=== PATIENT | male | born 1970 | race Caucasian/White ===

== ENCOUNTER 2024-11-17 11:29 | Emergency (ER) | payer SELFPAY ==
[~2024-11-17] VITALS: Ht 175.3 cm; Wt 72.6 kg
[2024-11-17 11:33] VITALS: O2SAT 100
[2024-11-17 12:31] LABS: BASOPHILS % 0.4 % (0.0-2.0); CHLORIDE 105 mEq/L (98-107); EOSINOPHILS % 0.5 % (0.0-5.0); HEMATOCRIT. 38.4 % (42.0-52.0); HEMOGLOBIN. 11.8 g/dL (14.0-18.0); LYMPHOCYTES % 16.3 % (20.0-50.0); MEAN CORPUSCULAR HEMOGLOBIN 21.2 pg (28.0-32.0); MEAN CORPUSCULAR HGB CONC 30.7 g/dL (31.0-37.0); MEAN CORPUSCULAR VOLUME 69.1 fL (80.0-94.0); MONOCYTES % 6.4 % (2.0-8.0); NEUTROPHILS % 76.4 % (40.0-76.0); PLATELET 271 x1000/uL (130-400); POTASSIUM 4.1 mEq/L (3.5-5.1); RED BLOOD CELL COUNT 5.56 mill/uL (4.7-6.1); RED CELL DISTRIBUTION WIDTH 15.2 % (11.6-14.6); SODIUM 140 mEq/L (136-145); WHITE BLOOD COUNT 9.8 x1000/uL (4.5-11.0)
[2024-11-17 12:32] LABS: CALCIUM 9.8 mg/dL (8.7-10.4); CARBON DIOXIDE 26 mEq/L (21-32)
[2024-11-17 12:37] LABS: GLUCOSE 113 mg/dL (70-105); UREA NITROGEN BLOOD 17 mg/dL (9-23)
[2024-11-17 12:39] LABS: ALANINE AMINOTRANSFERASE 18 IU/L (10-49); ALBUMIN 4.3 g/dL (3.2-4.8); ASPARTATE AMINOTRANSFERASE 17 IU/L (<34); BILIRUBIN DIRECT 0.2 mg/dL (<=3.0)
[2024-11-17 12:40] LABS: BILIRUBIN TOTAL 0.7 mg/dL (0.1-1.0); PROTEIN TOTAL 6.8 g/dL (6.0-8.3)
[2024-11-17 12:58] LABS: ADD RBC MORPHOLOGY YES; DIFFERENTIAL COMMENT 1
[2024-11-17 13:01] LABS: TROPONIN I HIGH SENSITIVITY < 4 ng/L (3.0-53)
[2024-11-17] MEDS: MORPHINE SULFATE 4 MG/ML INJ (FOR IV/IM USE) IV STA (13:01)
[2024-11-17] MEDS: ONDANSETRON HCL 4MG/2ML INJ IV STA (13:02)
[2024-11-17] MEDS: KETOROLAC 30MG/ML VIAL IV STA (13:02)
[2024-11-17] MEDS: SODIUM CHLORIDE 0.9% 1,000 ML IV ONE (13:02)
[2024-11-17] MEDS: OXYCODONE HCL/ACETAMINOPHEN 5/325MG TABLET PO STA (15:13)
[2024-11-17] MEDS: ONDANSETRON 4MG ODT PO STA (15:13)
[2024-11-17] MEDS ORDERED: OXYC-100 MT (15:28)
[2024-11-17] MEDS ORDERED: ONDA-239 PO (15:29)
[2024-11-17] MEDS ORDERED: KETO10TA2 MT (15:29)
[2024-11-17] MEDS ORDERED: OMEP40CA20 MT (15:29)
[2024-11-17] MEDS ORDERED: TAMS-11 MT (15:29)
[2024-11-17 15:43] VITALS: BP 118/70; PULSE 86; RESP 18; TEMP 36.8; O2SAT 100
[2024-11-17 17:07] LABS: MICROCYTOSIS 2+; PLATELET ESTIMATE NORMAL
== END 2024-11-17 15:44 | disposition home or self-care (01) ==
LOC: EDBD 11:37 → ER 11:37
DX: N20.2 Calculus of kidney with calculus of ureter (principal); Z87.442 Personal history of urinary calculi
CPT/HCPCS: 99285; 74176; 96374; 96375; 96361; 80076; 80048; 83690; 85025; 86850; 86900; 86901; 84484; 36415; 93005; J1885; Q0162; J2405; J2270; J7030